=== PATIENT | male | born 1980 | race Caucasian/White ===

== ENCOUNTER 2016-06-02 03:12 | Emergency (ER) | payer OTHER ==
[~2016-06-02] VITALS: Ht 175.3 cm; Wt 81.8 kg
[2016-06-02 03:15] VITALS: Ht 175.3 cm; Wt 81.8 kg
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
[2016-06-02] MEDS ORDERED: traMADol 50 MG TAB PO ONE (04:30)
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
[2016-06-02] MEDS ORDERED: TRAM50TA2 PO (05:59)
[2016-06-02] MEDS ORDERED: ACET500C5 PO (05:59)
[2016-06-02] MEDS ORDERED: CEPH-443 PO (05:59)
--- NOTE | 2016-06-02 06:14 | RADRPT ---
PROCEDURE: CT LUMBAR SPINE WITHOUT CONTRAST CLINICAL INDICATION: 35-year-old male with back pain. TECHNIQUE: The study was performed utilizing a [employer] VCT CT scanner. Direct axial section s were obtained through the lumbar spine. Coronal and sagittal re-formations were obtained. Automat ed exposure control and iterative reconstruction techniques were utilized for this examination. The images were viewed on a PACS workstation. CTD/vol = 24.4 mGy; Total Exam DLP = 855.9 mGy-cm. COMPARISON: No prior studies are available for comparison. FINDINGS: The lower thoracic and lumbar vertebral bodies have normal heights and anatomic alignment. There is no evidence for an acute fracture. At T11-12 there is moderate disk space narrowing. There is mild diffuse disk bulge. This is result ing in mild central spinal stenosis. At T12-L1 there is moderate disk space narrowing. There is a vacuum disk present. There is mild di ffuse disk bulge. This is resulting in minimal bilateral subarticular recess stenosis and mild cent ral spinal stenosis. At L1-2 there is mild disk space narrowing. There is no significant central or foraminal stenosis. At L2-3 the disk space has a normal appearance. There is no significant central or foraminal stenos is. At L3-4 there is minimal diffuse disk bulge. This is resulting in minimal central spinal stenosis. At L4-5 there is minimal retrolisthesis. There is mild diffuse disk bulge and hypertrophy of the li gamentum flavum. This is resulting in mild bilateral subarticular recess stenosis and klvw-fn-ksiub ate central spinal stenosis. At L5-S1 there is mild diffuse disk bulge and facet arthropathy. There is hypertrophy of the ligame ntum flavum. This is resulting in mild bilateral foraminal stenosis and minimal central spinal sten osis. IMPRESSION: 1. No CT evidence for acute lower thoracic or lumbar spine fracture. 2. Discogenic and degenerative changes most prominently within the lower thoracic and L4-5 levels. .Bryan Scott MD, MD Date Time Electronically viewed and signed by .Bryan Scott MD, MD on 06/02/2016 06:14 .M/
[2016-06-02 06:50] VITALS: BP 106/61; PULSE 89; TEMP 98
== END 2016-06-02 06:51 | disposition home or self-care (01) ==
LOC: FTE 03:12
DX: S60.211A Contusion of right wrist, initial encounter (principal); S41.111A Laceration without foreign body of right upper arm, initial encounter; S00.93XA Contusion of unspecified part of head, initial encounter; S39.92XA Unspecified injury of lower back, initial encounter; Y09 Assault by unspecified means; Y92.9 Unspecified place or not applicable
CPT/HCPCS: 70450; 72131

== ENCOUNTER 2018-05-16 06:34 | Emergency (ER) | payer OTHER ==
[~2018-05-16] VITALS: Ht 175.3 cm; Wt 92.4 kg
[~2018-05-16 06:34] MED LIST: ACET500C5 PO; CEPH-443 PO; TRAM50TA2 PO
[2018-05-16 06:37] VITALS: BP 152/85; PULSE 99; RESP 20; Ht 175.3 cm; Wt 92.4 kg
[2018-05-16] MEDS ORDERED: KETOROLAC 30 MG INJ IM STA (06:55)
[2018-05-16] MEDS ORDERED: CLINDAMYCIN 300 MG INJ IM ONE (07:00)
[2018-05-16] MEDS ORDERED: LIDOCAINE 1% (MPF) 5 ML VIAL INFIL ONE (07:00)
[2018-05-16] MEDS ORDERED: SULF1TAB31 PO (09:08)
[2018-05-16] MEDS ORDERED: CEPH500C PO (09:08)
[2018-05-16] MEDS ORDERED: HYDR-4011 PO (09:09)
--- NOTE | 2018-05-16 09:15 | ERD ---
ER Documentation Chief Complaint Chief Complaint Complains of an abscess to left arm x 2 days HPI 37-year-old male presents for left forearm abscess times 2 days. Patient is IV heroin user. He states that he tried to drain the abscess a couple times however it would return. He also has 2 other bumps on his left arm however there is no pain. Denies past medical history. Denies allergies to medication. ROS All systems reviewed and are negative except as per history of present illness. Medications Home Meds Active Scripts Hydrocodone/Acetaminophen (Yakima 5-325 Tablet) 1 Each Tablet, 1 EACH PO Q6H PRN for PAIN, #7 TAB Prov:ARISTEO DARLING 05/16/18 Cephalexin* (Cephalexin*) 500 Mg Capsule, 500 MG PO Q8 for abscess for 7 Days, #21 CAP Prov:LISSETARISTEO 05/16/18 Sulfamethoxazole/Trimethoprim* (Bactrim Ds* Tablet) 1 Each Tablet, 1 TAB PO BID for abscess for 7 Days, #14 TAB Prov:ARISTEO DARLING DO 05/16/18 Cephalexin* (Keflex*) 500 Mg Capsule, 500 MG PO QID for 5 Days, CAP Prov:VINCENT CROWDER RUBBER TESTER 06/02/16 Acetaminophen* (Tylophen*) 500 Mg Capsule, 1 CAP PO Q6H PRN for PAIN AND OR ELEVATED TEMP, #20 CAP Prov:VINCENT CROWDER RUBBER TESTER 06/02/16 Tramadol HCl (Tramadol HCl) 50 Mg Tablet, 50 MG PO Q6 PRN for PAIN, #20 TAB Prov:VINCENT CROWDER RUBBER TESTER 06/02/16 Reported Medications [none] Unknown Strength No Conflict Check 06/02/16 Allergies Allergies: Coded Allergies: No Known Allergy (Unverified , 06/02/16) PMhx/Soc Medical and Surgical Hx: pt denies Medical Hx, pt denies Surgical Hx Hx Alcohol Use: No Hx Substance Use: Yes Hx Tobacco Use: Yes Smoking Status: Current every day smoker Physical Exam Vitals Vital Signs Date Temp Pulse Resp B/P (MAP) Pulse Ox O2 O2 Flow FiO2 Time Delivery Rate 05/16/18 97.9 99 20 152/85 100 06:37 (107) Physical Exam Const: No acute distress Resp: Clear to auscultation bilaterally Cardio: Regular rate and rhythm, no murmurs, bilateral radial pulses intact Skin: Left forearm 2 cm mass with erythema and underlying fluctuance, 2 other masses noted about 1 cm each with erythema, no underlying fluctuance Ext: No cyanosis, or edema Neur: Awake and alert, bilateral upper extremity sensation intact Psych: Normal Mood and Affect Results 24 hrs Current Medications Medications Dose Sig/Deisy Start Time Status Last (Trade) Ordered Route PRN Stop Time Admin Dose Reason Admin Clindamycin 300 mg ONCE ONCE 05/16/18 DC 05/16/18 Phosphate IM 07:00 07:40 (Cleocin) 05/16/18 07:01 Lidocaine 5 ml ONCE ONCE 05/16/18 DC (Xylocaine INFIL 07:00 1% (Mpf)) 05/16/18 07:01 Ketorolac 30 mg ONCE STAT 05/16/18 DC 05/16/18 Tromethamine IM 06:55 07:40 (Toradol) 05/16/18 06:56 Procedures/MDM Abscess Incision and Drainage with irrigation by me: Location: Left forearm abscess Anesthesia: [Local 1% Lidocaine without epinephrine] Technique: [Irrigated. Disrupted loculations w/ instrumentation] Packing: [None] Complications: [Neurovascularly intact post procedure] 48 hour wound check. Scar minimization instructions given. Patient's skin symptoms have stabilized while they have been evaluated in the department and are appropriate for outpatient care and work up. Exam not consistent w/ sepsis, deep space infection, or foreign body. Medical Decision Making: Differential diagnosis includes but not limited to abscess, cellulitis, contact dermatitis Patient appeared well on physical exam. Examination of the left forearm shows a 2 cm abscess Abscess was drained, see procedure note above ED course: Patient was given Toradol, clindamycin IM. Symptoms improved with treatment. Prescription(s): Patient given prescription for Yakima short course low-dose, Keflex, Bactrim. Patient advised to follow up with PCP in 1-2 days. Patient advised to return to ED for new or worsening symptoms. Patient stable on discharge from the ED. The patient has been prescribed Yakima during this encounter. The patient has been warned about the use of narcotics. The patient should not drive or operate heavy machinery while taking this medication. The patient was also warned about the addictive properties of narcotic medications. [Narcan prescription was NOT provided given the following criteria 1. No more than 5 tablets of Yakima 10 mg or 10 tablets of Yakima 5 mg were prescribed. 2. Concomitant opiate and benzodiazepine prescriptions were not provided. 3. There is no obvious evidence of prior history of opiate abuse or overdose.] Disclaimer: Inadvertent spelling and grammatical errors are likely due to EHR/dictation software use and do not reflect on the overall quality of patient care. Also, please note that the electronic time recorded on this note does not necessarily reflect the actual time of the patient encounter. Departure Diagnosis: Primary Impression: Abscess Condition: Fair Patient Instructions: Abscess, Incision And Drainage Referrals: [facility] YOU HAVE RECEIVED A MEDICAL SCREENING EXAM AND THE RESULTS INDICATE THAT YOU DO NOT HAVE A CONDITION THAT REQUIRES URGENT TREATMENT IN THE EMERGENCY DEPARTMENT. FURTHER EVALUATION AND TREATMENT OF YOUR CONDITION CAN WAIT UNTIL YOU ARE SEEN IN YOUR DOCTORS OFFICE WITHIN THE NEXT 1-2 DAYS. IT IS YOUR RESPONSIBILITY TO MAKE AN APPOINTMENT FOR FOLOW-UP CARE. IF YOU HAVE A PRIMARY DOCTOR --you should call your primary doctor and schedule an appointment IF YOU DO NOT HAVE A PRIMARY DOCTOR YOU CAN CALL OUR PHYSICIAN REFERRAL HOTLINE AT IF YOU CAN NOT AFFORD TO SEE A PHYSICIAN YOU CAN CHOSE FROM THE FOLLOWING [facility] [address] [facility] [facility] [address] [facility]. [facility] [address] [facility] [facility] [address] [facility] [address] [facility]. [facility]. [address] [place] Additional Instructions: Call your primary care doctor TOMORROW for an appointment during the next 1-2 days.See the doctor sooner or return here if your condition worsens before your appointment time. Return to ER in 48 hours for wound check. ARISTEO DARLING DO May 16, 2018 09:15
== END 2018-05-16 09:17 | disposition home or self-care (01) ==
LOC: FTE 06:34
DX: L02.414 Cutaneous abscess of left upper limb (principal); F17.210 Nicotine dependence, cigarettes, uncomplicated
CPT/HCPCS: 10060; 96372; J1885; Z7502; Z7610